=== PATIENT | male | born 1955 | race Caucasian/White ===

== ENCOUNTER → 2022-07-18 | Outpatient (CLI) | payer MEDICARE ==
[2022-07-18 09:38] LABS: CHOLESTEROL 89 mg/dL (<200); LDL CHOLESTEROL 45 mg/dL (9-159); TRIGLYCERIDES 74 mg/dl (<150)
== END | disposition home or self-care (01) ==
LOC: LAB 08:08
PROVIDERS: ATTEND Internal Medicine Cardiovascular Disease
DX: E78.49 Other hyperlipidemia (principal)

== ENCOUNTER → 2023-01-25 | Outpatient (CLI) | payer MEDICARE | END | disposition home or self-care (01) | LOC: LAB 11:53 | PROVIDERS: ATTEND Internal Medicine Cardiovascular Disease | DX: D50.9 Iron deficiency anemia, unspecified (principal) ==